=== PATIENT | female | born 1990 | race Caucasian/White ===

== ENCOUNTER 2019-05-09 05:31 | Day surgery (SDC) | payer MEDICAID ==
[~2019-05-09] VITALS: Ht 167.6 cm; Wt 137.4 kg
[2019-05-09] MEDS ORDERED: LACTATED RINGERS 1,000 ML IV SCH (06:00)
[2019-05-09 06:10] LABS: BASOPHILS % 0.4 % (0.0-2.0); EOSINOPHILS % 3.7 % (0.0-5.0); HEMATOCRIT. 39.6 % (36.0-48.0); HEMOGLOBIN. 13.3 g/dL (12.0-16.0); LYMPHOCYTES % 26.2 % (20.0-50.0); MEAN CORPUSCULAR VOLUME 83.4 fL (81.0-99.0); MEAN PLATELET VOLUME 8.5 fl (7.4-10.4); MONOCYTES % 7.5 % (2.0-8.0); NEUTROPHILS % 62.2 % (40.0-76.0); PLATELET 292 x1000/uL (130-400); RED BLOOD CELL COUNT 4.74 mill/uL (4.2-5.4); RED CELL DISTRIBUTION WIDTH 14.6 % (11.6-14.6)
[2019-05-09 06:16] LABS: CHLORIDE 109 mEq/L (98-107)
[2019-05-09 06:22] LABS: PARTIAL THROMBOPLASTIN TIME 32.1 sec (23.4-31.0); PROTHROMBIN TIME 10.1 sec (9.6-11.0)
[2019-05-09 06:24] LABS: UCG SCREEN NEGATIVE
[2019-05-09] MEDS ORDERED: SKIN ADHESIVE 0.7 GM EA TOP ONE (07:08)
[2019-05-09] MEDS ORDERED: VASOPRESSIN 20 UNIT/ML 1ML ONE (07:08)
[2019-05-09] MEDS ORDERED: BUPIVACAINE HCL/PF 0.5% (5MG/ML) 10ML ONE (07:08)
[2019-05-09] MEDS ORDERED: ROCURONIUM BROMIDE 10MG/ML VIAL 5ML IV ONE ×2 (07:21→09:42)
[2019-05-09] MEDS ORDERED: FENTANYL CITRATE/PF 50MCG/ML 2ML VIAL ONE ×2 (07:21→09:55)
[2019-05-09] MEDS ORDERED: PROPOFOL 200MG/20ML VIAL IV ONE ×2 (07:22→10:44)
[2019-05-09] MEDS ORDERED: MIDAZOLAM HCL 2 MG/2 ML VIAL ONE (07:22)
[2019-05-09] MEDS ORDERED: LIDOCAINE HCL/PF 1% 10 MG/ML 5ML VIAL ONE (07:22)
[2019-05-09] MEDS ORDERED: SODIUM CHLORIDE 0.9% 10ML VIAL ONE (07:27)
[2019-05-09] MEDS ORDERED: CEFAZOLIN SODIUM 1000MG/VIAL ONE ×2 (07:27→08:29)
[2019-05-09] MEDS ORDERED: HYDROMORPHONE HCL/PF 2MG/ML CPJ IV PRN (08:45)
[2019-05-09] MEDS ORDERED: MEPERIDINE HCL/PF 25MG/ML CPJ IV PRN (08:45)
[2019-05-09] MEDS ORDERED: FENTANYL CITRATE/PF 50MCG/ML 2ML VIAL IV PRN (08:45)
[2019-05-09] MEDS ORDERED: ONDANSETRON HCL 4MG/2ML INJ IV PRN (08:45)
[2019-05-09] MEDS ORDERED: METOCLOPRAMIDE HCL 10MG/2ML VIAL ONE (09:18)
[2019-05-09] MEDS ORDERED: DEXAMETHASONE 4MG/ML 1ML VIAL ONE (09:18)
[2019-05-09] MEDS ORDERED: NEOSTIGMINE METHYLSULFATE 1MG/ML 10 ML VIAL ONE (10:27)
[2019-05-09] MEDS ORDERED: GLYCOPYRROLATE 0.2 MG/ML 2ML VIAL ONE (10:27)
[2019-05-09] MEDS ORDERED: ONDANSETRON HCL 4MG/2ML INJ ONE (10:33)
[2019-05-09] MEDS ORDERED: KETOROLAC 30MG/ML VIAL IV ONE (11:15)
[2019-05-09 11:20] VITALS: BP 130/65
[2019-05-09] MEDS ORDERED: HYDROCODONE/ACETAMINOPHEN 5/325MG TABLET PO ONE (13:15)
== END 2019-05-09 13:50 | disposition home or self-care (01) ==
LOC: OR 05:31
PROVIDERS: ATTEND Obstetrics & Gynecology
DX: N83.8 Other noninflammatory disorders of ovary, fallopian tube and broad ligament (principal); N83.202 Unspecified ovarian cyst, left side; E66.01 Morbid (severe) obesity due to excess calories; Z68.42 Body mass index [BMI] 45.0-49.9, adult
CPT/HCPCS: 36415; 58662; 80048; 81025; 85025; 85610; 85730; 86850; 86900; 86901; 88300; 88304; 93005; J0690; J1100; J1885; J2250; J2405; J2704; J2710; J2765; J3010; J3490